=== PATIENT | female | born 1985 | race Caucasian/White ===

== ENCOUNTER → 2018-12-24 | Outpatient (CLI) | payer BC ==
[~2018-12-24] MED LIST: MOTRIN 600600 MG/TAB PO; PERCOCET 325 MG1 TA2 PO; PRENATAL VITAMI1 TAB PO; PROBIOTIC FORMU1 CAP PO; SINGULAIR 110 MG/TAB PO; ZYRTEC 10MG10 MG PO
== END ==
LOC: DIA.ED 10:30
DX: O24.419 Gestational diabetes mellitus in pregnancy, unspecified control (principal); Z3A.22 22 weeks gestation of pregnancy
CPT/HCPCS: G0108

== ENCOUNTER → 2019-01-21 | Outpatient (CLI) | payer BC | LOC: DIA.ED 14:14 | DX: O24.419 Gestational diabetes mellitus in pregnancy, unspecified control (principal); Z3A.24 24 weeks gestation of pregnancy | CPT/HCPCS: G0108 ==

== ENCOUNTER 2020-08-26 08:06 | Inpatient (IN) | payer BC ==
[2020-08-26] VITALS (11 sets, daily range): BP systolic 96–143; BP diastolic 45–79; PULSE 59–75; TEMP 97.6–98.1
[~2020-08-26] VITALS: Ht 165.1 cm; Wt 65.9 kg
[~2020-08-26 08:06] MED LIST changes: +FLONASEALLERGY
--- NOTE | 2020-08-26 08:13 | NUR ---
0813- Pt arrived on unit via wheelchair escorted by staff and . Pt reports contractions every 3-5 minutes since 0600 this morning. Pt denies any leaking of fluid or vaginal bleeding and reports normal movement. 0815- SVE by this RN /+[address] Painting notified of pt's arrival, SVE and ctx pattern. Orders for labor admission received and MD on way to the hospital for delivery. 0820- IV started and labs obtained. 0827- Dr. Painting at the bedside. Pt set up for delivery. 0829- AROM for clear fluid per Dr. Painting. 0830- of viable female . [place] placed on mom's abdomen. Cords clamped and cut. Care of the given to nursery RN at the bedside. 0834- of placenta. Pitocin started at 333ml/hr per order and protocol. [facility]. 0840- Straight cath done per Dr. Painting with moderate amount of clear yellow urine.
[2020-08-26 09:05] LABS: HEMATOCRIT 37.7 % (37.0-47.0); MEAN CELL VOLUME 94 fl (80.0-100.0); MEAN CORPUSCULAR HEMOGLOBIN 32 pg (27.0-31.0); MEAN CORPUSCULAR HGB CONC 35 g/dl (33.0-37.0); MEAN PLATELET VOLUME 10.7 fl (7.4-10.4); PLATELET COUNT 303 K/mm3 (130-400); RED BLOOD COUNT 4.03 M/mm3 (4.10-5.30); REDCELL DISTRIBUTION WIDTH-CV 12.2 % (11.5-14.5)
[2020-08-26 10:15] LABS: BAND 2 % (0-10); LYMPHOCYTE 29 % (20.0-51.0); METAMYELOCYTE 2 % (0-0); NEUTROPHILS 57 % (42.0-75.2)
[2020-08-26 10:16] LABS: PLATELET ESTIMATE NORMAL (NORMAL)
[2020-08-27 00:30] VITALS: BP 109/59; PULSE 77; TEMP 97.9
[2020-08-27 04:15] VITALS: BP 102/59; PULSE 72; TEMP 98.6
[2020-08-27 07:45] VITALS: BP 101/63; PULSE 67; TEMP 97.8
[2020-08-27 08:48] LABS: PATHOLOGY DIFF REVIEW OK
[2020-08-27] MEDS ORDERED: IBU600 MG PO (10:11)
== END 2020-08-27 12:00 | disposition home or self-care (01) | DRG 807 ==
LOC: LDRO 08:06 → OB 08:21 → LDR 08:21 → OB 11:51
PROVIDERS: ADMIT Obstetrics & Gynecology
PROC: 10E0XZZ Delivery of Products of Conception, External Approach (ICD-10-PCS; principal; 2020-08-26)
PROC: 0KQM0ZZ Repair Perineum Muscle, Open Approach (ICD-10-PCS; 2020-08-26)
DX: O70.1 Second degree perineal laceration during delivery (principal); Z37.0 Single live birth; Z3A.38 38 weeks gestation of pregnancy
CPT/HCPCS: J2590; J7120